=== PATIENT | male | born 1985 | race American Indian/Alaskan Native ===

== ENCOUNTER 2017-07-03 06:12 | Emergency (ER) | payer MEDICAID ==
[2017-07-03 06:46] VITALS: BP 129/94
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
== END 2017-07-03 07:40 | disposition left against medical advice (07) ==
LOC: ED 06:12
DX: R07.81 Pleurodynia (principal); Z53.21 Procedure and treatment not carried out due to patient leaving prior to being seen by health care provider
CPT/HCPCS: 71020

== ENCOUNTER 2017-07-09 07:22 | Emergency (ER) | payer MEDICAID ==
[2017-07-09 07:29] VITALS: BP 149/92
== END 2017-07-09 15:16 | disposition left against medical advice (07) ==
LOC: ED 07:22
DX: M79.602 Pain in left arm (principal); Z53.21 Procedure and treatment not carried out due to patient leaving prior to being seen by health care provider

== ENCOUNTER 2017-07-26 05:37 | Emergency (ER) | payer MEDICAID | END 2017-07-26 06:40 | disposition left against medical advice (07) | LOC: ED 05:37 | DX: R10.9 Unspecified abdominal pain (principal); Z53.21 Procedure and treatment not carried out due to patient leaving prior to being seen by health care provider ==

== ENCOUNTER 2018-03-07 05:50 | Emergency (ER) | payer MEDICAID ==
[2018-03-07 06:09] VITALS: BP 125/78
== END 2018-03-07 07:43 | disposition left against medical advice (07) ==
LOC: ED 05:50
DX: M79.602 Pain in left arm (principal); Z53.21 Procedure and treatment not carried out due to patient leaving prior to being seen by health care provider

== ENCOUNTER 2018-03-15 03:21 | Emergency (ER) | payer MEDICAID ==
[2018-03-15 03:29] VITALS: BP 134/80
== END 2018-03-15 06:41 | disposition left against medical advice (07) ==
LOC: ED 03:21
DX: M54.2 Cervicalgia (principal); M79.602 Pain in left arm; R07.81 Pleurodynia; Z53.21 Procedure and treatment not carried out due to patient leaving prior to being seen by health care provider

== ENCOUNTER 2021-04-04 05:28 | Emergency (ER) | payer MEDICAID ==
[2021-04-04 07:25] VITALS: BP 131/80
== END 2021-04-04 16:12 | disposition left against medical advice (07) ==
LOC: ED 05:28
DX: Z04.1 Encounter for examination and observation following transport accident (principal); Z53.21 Procedure and treatment not carried out due to patient leaving prior to being seen by health care provider; V87.7XXA Person injured in collision between other specified motor vehicles (traffic), initial encounter; Y93.89 Activity, other specified; Y92.89 Other specified places as the place of occurrence of the external cause; Y99.8 Other external cause status

== ENCOUNTER 2021-04-05 04:59 | Emergency (ER) | payer MEDICAID ==
[2021-04-05 06:42] VITALS: BP 143/94
== END 2021-04-05 13:30 | disposition left against medical advice (07) ==
LOC: ED 04:59
DX: Z04.1 Encounter for examination and observation following transport accident (principal); V89.2XXA Person injured in unspecified motor-vehicle accident, traffic, initial encounter; Z53.21 Procedure and treatment not carried out due to patient leaving prior to being seen by health care provider; Y93.89 Activity, other specified; Y92.89 Other specified places as the place of occurrence of the external cause; Y99.8 Other external cause status

== ENCOUNTER 2021-05-11 23:45 | Emergency (ER) | payer MEDICAID ==
[2021-05-12 01:22] VITALS: BP 151/90
== END 2021-05-12 01:45 | disposition left against medical advice (07) ==
LOC: ED 23:45
DX: R07.81 Pleurodynia (principal); Z53.21 Procedure and treatment not carried out due to patient leaving prior to being seen by health care provider
CPT/HCPCS: 99281

== ENCOUNTER 2021-05-28 20:01 | Emergency (ER) | payer MEDICAID | END 2021-05-29 23:35 | LOC: ED 20:01 | DX: R07.81 Pleurodynia (principal); Z53.21 Procedure and treatment not carried out due to patient leaving prior to being seen by health care provider ==

== ENCOUNTER 2021-09-15 11:14 | Emergency (ER) | payer MEDICAID ==
[2021-09-15 12:19] VITALS: BP 132/70
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
== END 2021-09-15 14:30 | disposition home or self-care (01) ==
LOC: ED 11:14
DX: M25.512 Pain in left shoulder (principal); J45.909 Unspecified asthma, uncomplicated; F17.200 Nicotine dependence, unspecified, uncomplicated; Z98.890 Other specified postprocedural states
CPT/HCPCS: 99281

== ENCOUNTER 2021-10-03 22:37 | Emergency (ER) | payer MEDICAID ==
[2021-10-03 23:52] VITALS: BP 128/86
== END 2021-10-04 01:30 | disposition left against medical advice (07) ==
LOC: ED 22:37
DX: M79.602 Pain in left arm (principal); Z53.21 Procedure and treatment not carried out due to patient leaving prior to being seen by health care provider

== ENCOUNTER 2021-11-02 00:10 | Emergency (ER) | payer MEDICAID | END 2021-11-02 01:00 | disposition left against medical advice (07) | LOC: ED 00:10 | DX: M79.603 Pain in arm, unspecified (principal); Z53.21 Procedure and treatment not carried out due to patient leaving prior to being seen by health care provider ==

== ENCOUNTER 2022-01-13 15:42 | Emergency (ER) | payer MEDICAID | END 2022-01-13 19:00 | disposition left against medical advice (07) | LOC: ED 15:42 | DX: M25.571 Pain in right ankle and joints of right foot (principal); Z53.21 Procedure and treatment not carried out due to patient leaving prior to being seen by health care provider ==

== ENCOUNTER 2022-01-18 20:21 | Emergency (ER) | payer MEDICAID ==
[2022-01-18 21:00] VITALS: BP 135/75
--- NOTE | 2022-01-18 21:31 | XRay Report ---
Right ankle 3 views INDICATION: Injury FINDINGS: Talar dome appears normal. Distal tibia and fibula appear intact. Calcaneus and talus appea r normal. IMPRESSION: No acute fracture is definitely seen there may be a small effusion. Signer Name: Luiz Elizondo MD Signed: 01/18/2022 9:27 PM Workstation Name: [id number]
== END 2022-01-19 06:25 | disposition left against medical advice (07) ==
LOC: ED 20:21
DX: S99.911A Unspecified injury of right ankle, initial encounter (principal); Z53.21 Procedure and treatment not carried out due to patient leaving prior to being seen by health care provider; X58.XXXA Exposure to other specified factors, initial encounter; Y93.89 Activity, other specified; Y92.89 Other specified places as the place of occurrence of the external cause; Y99.8 Other external cause status

== ENCOUNTER 2022-01-25 16:22 | Emergency (ER) | payer MEDICAID | END 2022-01-25 17:45 | disposition left against medical advice (07) | LOC: ED 16:22 | DX: S99.911A Unspecified injury of right ankle, initial encounter (principal); Z53.21 Procedure and treatment not carried out due to patient leaving prior to being seen by health care provider; X58.XXXA Exposure to other specified factors, initial encounter; Y93.89 Activity, other specified; Y92.89 Other specified places as the place of occurrence of the external cause; Y99.8 Other external cause status ==

== ENCOUNTER 2022-01-26 22:08 | Emergency (ER) | payer MEDICAID ==
[2022-01-26 22:46] VITALS: BP 126/78
== END 2022-01-27 10:19 | disposition left against medical advice (07) ==
LOC: ED 22:08
DX: M25.571 Pain in right ankle and joints of right foot (principal); Z53.21 Procedure and treatment not carried out due to patient leaving prior to being seen by health care provider

== ENCOUNTER 2022-02-28 03:30 | Emergency (ER) | payer MEDICAID ==
[2022-02-28 03:39] VITALS: BP 139/86
== END 2022-03-01 15:44 | disposition left against medical advice (07) ==
LOC: ED 03:30
DX: M79.602 Pain in left arm (principal); Z53.21 Procedure and treatment not carried out due to patient leaving prior to being seen by health care provider

== ENCOUNTER 2022-03-08 23:40 | Emergency (ER) | payer MEDICAID ==
[2022-03-08 23:48] VITALS: BP 138/84
== END 2022-03-09 04:10 | disposition left against medical advice (07) ==
LOC: ED 23:40
DX: M25.571 Pain in right ankle and joints of right foot (principal); Z53.21 Procedure and treatment not carried out due to patient leaving prior to being seen by health care provider